=== PATIENT | male | born 1950 | race Caucasian/White ===

== ENCOUNTER 2024-04-03 09:50 | Emergency (ER) | payer BC, SELFPAY ==
[2024-04-03 09:51] VITALS: BP 128/93; PULSE 70; RESP 16; TEMP 35.9; O2SAT 100
[2024-04-03 09:53] VITALS: BMI 31.3
--- NOTE | 2024-04-03 10:51 | EDS_ITS ---
HPI History of Present Illness Chief Complaint: Lower Extremity Injury Detail of Chief Complaint: Toenail avulsion Onset/Context/Timing Onset: Yesterday Narrative Narrative: Patient states that last evening he avulsed the distal aspect of his right great toenail. He has a mild amount of bleeding that is now resolved. Toenail is still loose and painful. [facility] Medical History (Updated 04/03/24 @ 16:[address] Arlet Watts MD) High cholesterol Hx of gastroesophageal reflux (GERD) Hypertension Depression Allergy/AdvReac Type Severity Reaction Status Date / Time No Known Allergies Allergy Verified 04/03/24 09:54 Social History Smoking Status: Never smoker ROS ROS ED Constitutional Constitutional ED: Denies chills or fever(s) Eyes Eyes: Denies discharge from eye(s) ENT ENT ED: Denies discharge from eye(s), rhinorrhea or sore throat Cardiovascular Cardiovascular: Denies chest pain Respiratory/Chest Respiratory/Chest: Denies cough or dyspnea Gastrointestinal Gastrointestinal: Denies abdominal pain, nausea or vomiting Genitourinary Genitourinary ED: Denies dysuria Musculoskeletal Musculoskeletal: Denies back pain or extremity pain Integumentary Reports other Details: Avulsion right great toenail ; Denies Abrasions or rash Neurologic Neurologic: Denies headache(s) or weakness Psychiatric Psychiatric: Denies anxiety or depression Endocrine Endocrinology: Denies polydipsia or polyuria Allergic/Immunologic Allergic/Immunologic ED: Denies lip swelling or urticaria EXAM Physical Exam Const Vital Signs: 04/03/24 09:51 04/03/24 11:03 Temperature 96.7 F L 97.8 F Temperature Source Temporal Pulse Rate 70 88 Respiratory Rate 16 18 Blood Pressure 128/93 H 128/90 H Blood Pressure Mean 104 102 Pulse Ox 100 98 Oxygen Delivery Method Room Air Positive well nourished and well developed General Appearance ED: well developed HEENT Reports moist mucous membranes Eyes EOMs intact bilaterally Chest Wall inspection of chest normal and palpation of chest normal Resp normal respiratory effort and clear to auscultation bilaterally Cardio regular rate and regular rhythm GI non-tender Palpation: soft Extremity Extremity Narrative: Avulsion of the distal aspect of the nail on the right great toe. Mild amount of dried blood noted on the border. Nail is still firmly attached at the base. No bony tenderness over the toe itself. Neuro oriented x3 and no sensory deficits noted Motor Exam: strength 5/5 throughout Psych mental status grossly normal MDM MDM MDM Narrative Medical decision making narrative: Toenail trimmed back spaces possible. Wound cleansed. Steri-Strips placed to hold the nail in position. Patient was advised that this will hold the nail temporarily while at new toenail grows out. I do not feel he needs antibiotics or imaging at this time. Discharge Plan Triage Chief Complaint: Lower Extremity Injury ED Provider: Arlet Watts Dx/Rx/DC Orders Clinical Impression: Avulsion of toenail Instructions: ED Detached Fingernail or Toenail Primary Care Provider: Care Physician,No Primary Referrals: Royal Rodriguez DPM [Med Staff - Active Staff] - As Needed Care Physician,No Primary [Primary Care Provider] - Print Language: [place] Disposition Disposition: Home, Self Care Discharge Date/Time: 04/03/24 11:04
[2024-04-03 11:03] VITALS: BP 128/90; PULSE 88; RESP 18; TEMP 36.6; O2SAT 98
== END 2024-04-03 11:04 | disposition home or self-care (01) ==
PROVIDERS: Emergency Provider Emergency Medicine; Visit Provider Emergency Medicine
DX: S91.201A Unspecified open wound of right great toe with damage to nail, initial encounter (principal); E78.00 Pure hypercholesterolemia, unspecified; I10 Essential (primary) hypertension; K21.9 Gastro-esophageal reflux disease without esophagitis; X58.XXXA Exposure to other specified factors, initial encounter
CPT/HCPCS: 99283